=== PATIENT | male | born 1995 | race Caucasian/White ===

== ENCOUNTER → 2020-11-19 | Outpatient (REF) ==
--- NOTE | 2020-11-20 08:46 | REP ---
INDICATION: MAHIN GROUP- ARTHRRITIS COMPARISON: None. TECHNIQUE: AP, lateral, bilateral oblique views right hand. FINDINGS: *Examination is made available for evaluation on 11/20/2020. The osseous structures and joint spaces are intact and normal. There is no evidence for acute fracture or dislocation. Surrounding soft tissues are unremarkable. No subcutaneous emphysema or radiodense foreign body. No degenerative changes or congenital abnormalities appreciated. IMPRESSION: Normal age-appropriate right hand radiographs. <Electronically signed by Ramon Flores > 11/20/20 [id number]
--- NOTE | 2020-11-20 08:46 | REP ---
INDICATION: MAHIN GROUP- ARTHRRITIS COMPARISON: None. TECHNIQUE: AP, lateral, and swimmers views. FINDINGS: *Examination made available for evaluation on 11/20/2020. Alignment and kyphosis is maintained. Vertebral bodies intact. No acute fracture / compression injury or subluxation. No degenerative changes. Paravertebral soft tissues are normal. IMPRESSION: Normal thoracic spine series. <Electronically signed by Ramon Flores > 11/20/20 [id number]
--- NOTE | 2020-11-23 10:50 | REP ---
INDICATION: MAHIN GROUP- ARTHRRITIS COMPARISON: None. TECHNIQUE: AP, lateral, coned-down views of the lumbar spine. FINDINGS: Three views of the lumbosacral spine demonstrate satisfactory alignment and lordosis without acute fracture / compression injury or subluxation. No significant degenerative changes appreciated. IMPRESSION: Normal age-appropriate lumbosacral spine radiographs <Electronically signed by Ramon Flores > 11/23/20 [id number]
== END ==
LOC: M PLAIMG 15:00
PROVIDERS: ATTEND Internal Medicine
DX: M19.90 Unspecified osteoarthritis, unspecified site (principal)